=== PATIENT | female | born 1955 | race Caucasian/White ===

== ENCOUNTER → 2016-11-30 | Outpatient (CLI) | payer OTHER ==
--- NOTE | 2016-12-01 13:54 | MAMMOGRAPHY REPORT ---
BILATERAL DIGITAL SCREENING MAMMOGRAM TOMOSYNTHESIS WITH CAD: 11/30/2016 CLINICAL HISTORY: Routine screening. Patient has no complaints. TECHNIQUE: Breast tomosynthesis in addition to standard 2D mammography was performed. Current study was also evaluated with a Computer Aided Detection (CAD) system. COMPARISON: Comparison is made to exams dated: 11/04/2015 mammogram, 10/29/2014 mammogram, 10/18/2013 ma mmogram, 10/11/2012 mammogram, 09/29/2011 mammogram, and 07/16/2010 mammogram - [facility]. BREAST COMPOSITION: The tissue of both breasts is heterogeneously dense, which may obscure small mas ses. FINDINGS: The breast parenchyma pattern is similar to prior exams. A 6 mm nodular asymmetry in the l ateral left breast is unchanged dating back to at least 01/23/2009, therefore likely benign. There a re a few scattered benign rim calcifications in the breasts. No new suspicious mass, architectural d istortion or cluster of microcalcifications is seen. IMPRESSION: ACR BI-RADS CATEGORY 1: NEGATIVE There is no mammographic evidence of malignancy. A 1 year screening mammogram is recommended. The pa tient will receive written notification of the results. Approximately 10% of breast cancers are not detected with mammography. A negative mammographic report should not delay biopsy if a clinically suggestive mass is present. Milagro Ramos M.D. ay/:11/30/2016 16:53:03 National Coverage Specialist: Carina Li RT(R)(M), [facility] letter sent: Normal 1/2 BI-RADS Code: ACR BI-RADS Category 1: Negative
== END | disposition home or self-care (01) ==
LOC: C.MAMM 16:05
PROVIDERS: ATTEND Obstetrics & Gynecology
DX: Z12.31 Encounter for screening mammogram for malignant neoplasm of breast (principal)

== ENCOUNTER → 2017-02-12 | Outpatient (CLI) | payer OTHER ==
[2017-02-12 10:17] LABS: CHOLESTEROL/HDL RATIO 2.3
== END | disposition home or self-care (01) ==
LOC: C.LAB 07:23
DX: Z00.00 Encounter for general adult medical examination without abnormal findings (principal)

== ENCOUNTER 2020-08-23 05:04 | Observation (INO) ==
--- NOTE | 2020-08-05 12:04 | Anesthesiology Consultation ---
Date of Service August 05, 2020 Assessment & Plan (1) Encounter for pre-operative examination: COVID Status: As of 08/05 assessment, patient denies travel to endemic area, known exposure/sick contacts, or symptoms of COVID19. Patient instructed that they and their household members must follow strict social distancing guidelines, wear a mask in public and avoid travel/events/gatherings for 14 days prior to surgery. Preoperative COVID19 testing to be completed prior to surgery per surgeon's arrangements. Patient made aware to self-isolate as much as possible between COVID testing and surgery (she will have to work but will otherwise isolate). *H/O PONV with GALLITO* Chart Review Chart Review: Acceptable Risk for Surgery and Patient seen in Pre Admission Testing Teaching & Discussion Instructed NPO after midnight before surgery, except medications with 15 cc of water. Medication instructions provided according to the PAT guidelines. History Surgery Operation Date: 08/23/20 10:55 Proposed Procedures p Right Total Hip Arthroplasty - Fabio Morales MD Height/Weight Height: 5 ft 6 in Weight: 59.4 kg Allergies Allergy/AdvReac Type Severity Reaction Status Date / Time Penicillins Allergy Mild Rash Verified 07/31/20 07:30 tetracycline Allergy Mild Hives Verified 07/31/20 07:30 Medications Home Medications Medication Instructions Recorded Confirmed Last Taken No Known Home Medications 04/09/20 07/31/20 Unknown Past Medical History Medical History Arthritis Asymptomatic menopausal state Basal cell carcinoma removed from back 2011 IBS (irritable bowel syndrome) Osteoarthritis PONV (postoperative nausea and vomiting) Exercise / Class Metabolic Activity II 4-5 Yardwork/Stairs/Walk up hill (Some mild OCONNELL with 1 FOS, no chest pain. Has always been active, feels deconditioned 2/2 hip pain) Past Family History Family History Mother Hypertension Father Esophageal cancer Denies family history of Ovarian cancer Breast cancer Colorectal cancer Past Surgical History Surgical History H/O: hysterectomy GALLITO 1998, fibroids History of oral surgery wisdom teeth extr Hx of colonoscopy Past Anesthesia History No Hx of Anesthesia Complications (other than PONV) and No Family Hx of Anesthesia Complications History of PONV History of PONV (with GALLITO) and Hx of Motion Sickness Social History Smoking Status: Never smoker Do You Dip or Chew Tobacco: No Smoking End Date: age 19 and no longer Hx Alcohol Use: Yes Alcohol type: wine and hard liquor alcohol intake frequency: a few times a week Hx Substance Use: No substance use type: does not use Review of Systems Pt denies any recent chest pain, shortness of breath, cough, fever, URI, or uncontrolled acid reflux. +hip pain +occasional palpitations Physical Exam Vital Signs BP: 135/71 P: 64bpm SPO2: 98% RA T: 97.7 F R: 16 ENMT Mouth: + dental restorations (lower L crown); no chipped teeth and no loose teeth Thyromental Distance: < 3.5 Finger Breadths Mallampati Class: I Neck normal visual inspection; neck extension not limited Respiratory normal respiratory effort, lungs clear to auscultation Cardiovascular RRR, no murmur, no edema Testing Laboratory Results 08/05/20 12:34 08/05/20 12:34 PT 10.0 Seconds (9.0-12.0) 08/05/20 12:34 INR 1.0 (0.9-1.1) 08/05/20 12:34 APTT 23.9 Seconds (21.0-31.0) 08/05/20 12:34 Blood Type O Positive 08/05/20 12:34 Antibody Screen NEGATIVE 08/05/20 12:34 Electrocardiogram Date: 08/05/20 Findings: + NSR @ (61bpm) Chest X-Ray Date: 08/05/20 Findings: + NAD
--- NOTE | 2020-08-05 13:05 | XRay Report ---
XR chest Pre-admission PA/Lat CLINICAL HISTORY: Preoperative evaluation. COMPARISON STUDY: No previous studies for comparison. FINDINGS: Lung volumes are normal. Lungs are clear. There is no pneumothorax or pleural effusion. Car diac size is normal. Mediastinal contours are normal. There is no evidence for pulmonary edema. IMPRESSION: No acute cardiopulmonary findings. ACT 112: Negative or not required by law. Electronically signed by: Martínez Rehman M.D. 08/05/2020 1:04 PM
[2020-08-05 13:34] LABS: Basophils # (auto) 0.03 K/uL (0-0.2); Basophils % (auto) 0.6 %; Eosinophils # (auto) 0.06 K/uL (0-0.5); Eosinophils % (auto) 1.3 %; Hematocrit (blood only) 36.9 % (37-47); Hemoglobin 12.7 g/dL (12.0-16.0); Immature Granulocytes # (auto) 0.01 K/uL (0.00-0.02); Immature Granulocytes % (auto) 0.2 %; Lymphocytes # (auto) 2.15 K/uL (1.2-3.4); Lymphocytes % (auto) 45.5 %; Mean Corpuscular Hemoglobin 31.6 pg (25-34); Mean Corpuscular Hgb Conc 34.4 g/dL (32-36); Mean Corpuscular Volume 91.8 fL (80-100); Mean Platelet Volume 10.6 fL (7.4-10.4); Monocytes # (auto) 0.37 K/uL (0.11-0.59); Monocytes % (auto) 7.8 %; Neutrophils # (auto) 2.11 K/uL (1.4-6.5); Neutrophils % (auto) 44.6 %; Platelet Count 317 K/uL (130-400); RDW Coefficient of Variation 13.8 % (11.5-14.5); RDW Standard Deviation 46.7 fL (36.4-46.3); Red Blood Count 4.02 M/uL (4.2-5.4); White Blood Count 4.73 K/uL (4.8-10.8)
[2020-08-05 13:44] LABS: Partial Thromboplastin Ratio 0.9; Partial Thromboplastin Time 23.9 Seconds (21.0-31.0)
[2020-08-05 14:09] LABS: BUN Creatinine Ratio 16.3 (10-20); Calcium 9.7 mg/dl (8.5-10.1); Creatinine Clr Calc Pharmacy 69.1 ml/min; Est GFR (African American) 94.6; Est GFR (Non-African American) 81.6; Potassium 3.8 mmol/L (3.5-5.1)
--- NOTE | 2020-08-06 06:35 | Electrocardiogram Report ---
Test Reason : Blood Pressure : / mmHG Vent. Rate : 061 BPM Atrial Rate : 061 BPM P-R Int : 194 ms QRS Dur : 094 ms QT Int : 410 ms P-R-T Axes : 082 086 067 degrees QTc Int : 412 ms Normal sinus rhythm Normal ECG No previous ECGs available Confirmed by Ori Hylton ([id number]) on 08/06/2020 6:35:07 AM Referred By: Fabio Morales Confirmed By:Ori Hylton
[2020-08-23] MEDS ORDERED: Scopolamine 1 MG TDSY TD SCH (06:00)
[2020-08-23] MEDS ORDERED: FAMOTIDINE 20 MG TAB PO SCH (06:00)
[2020-08-23] MEDS ORDERED: LR 500ML BOLUS, THEN 15ML/HR IV SCH (06:00)
[2020-08-23] MEDS ORDERED: LR 60ML/HR IV SCH (06:00)
[2020-08-23] MEDS ORDERED: ACETAMINOPHEN 500 MG TAB PO SCH (06:00)
[2020-08-23] MEDS ORDERED: ceFAZolin 2000MG 2,000 MG/15 ML SYR IV SCH (06:00)
[2020-08-23] MEDS ORDERED: GABAPENTIN 600 MG DOSE PO SCH (06:00)
[2020-08-23] MEDS ORDERED: TRANEXAMIC ACID 1,000 MG **IV Pre-op IV SCH (06:00)
[2020-08-23] MEDS ORDERED: BUPIVACAINE 0.5 % 5 MG/1 ML PF 10ML VIAL ONE (06:26)
[2020-08-23] MEDS ORDERED: MIDAZOLAM HCL 1 MG/ML 2ML VIAL ONE (06:38)
[2020-08-23] MEDS ORDERED: PROPOFOL IV EMULSION 10 MG/ML 20 ML VIAL IV ONE (06:38)
[2020-08-23] MEDS ORDERED: BUPIVACAINE/EPINEPHRINE 0.5% MPF 1:200,000 30 ML VIAL ONE (06:38)
[2020-08-23] MEDS ORDERED: LIDOCAINE HCL 2% 2 ML VIAL/AMP(20MG/ML) INFIL ONE (06:38)
[2020-08-23] MEDS ORDERED: fentaNYL citrate 100 MCG/2 ML VIAL ONE (06:38)
[2020-08-23] MEDS ORDERED: BACITRACIN INJ 50,000 UNIT VIAL ONE (06:39)
[2020-08-23] MEDS ORDERED: MoRPHine SULFATE PF 1 MG/ML 10 ML AMP/VIAL ONE (06:46)
--- NOTE | 2020-08-23 06:52 | History & Physical Bridge Note ---
Date of Service August 23, 2020 History & Physical Bridge Note I have examined the patient, reviewed the History & Physical and in the interval since the performance of the History & Physical I have noted the following changes of clinical significance: no changes noted
[2020-08-23] MEDS ORDERED: KETAMINE 50 MG/5 ML SYRINGE ONE (07:09)
[2020-08-23] MEDS ORDERED: diphenhydrAMINE 50 MG/ML VIAL IV PRN (07:12)
[2020-08-23] MEDS ORDERED: NALOXONE HCL 0.4 MG/1 ML VIAL/CARP IV PRN ×2 (07:12→09:27)
[2020-08-23] MEDS ORDERED: MoRPHine SULFATE 2 MG/ML CARP IV PRN (07:12)
[2020-08-23] MEDS ORDERED: NALOXONE HCL 0.08 MG in SYRINGE 1.8 ML IV PRN (07:12)
[2020-08-23] MEDS ORDERED: MoRPHine SULFATE PF 1 MG/ML 10 ML AMP/VIAL INT SPINAL ONE (07:12)
[2020-08-23] MEDS ORDERED: NALOXONE HCL 1 MG in SODIUM CHLORIDE 0.9% 1000ML 1,000 ML IV PRN (07:12)
[2020-08-23] MEDS ORDERED: ONDANSETRON INJ 2 MG/ML 2 ML VIAL IV PRN (07:12)
[2020-08-23] MEDS ORDERED: ePHEDrine sulfate 50 MG/ML AMP IV PRN (07:12)
[2020-08-23] MEDS ORDERED: PROMETHAZINE HCL 25 MG in SODIUM CHLORIDE 0.9% 50 ML IV PRN (07:12)
[2020-08-23] MEDS ORDERED: LACTATED RINGER'S 500 ML IV PRN (07:12)
[2020-08-23] MEDS ORDERED: SODIUM CHLORIDE 0.9% 1000ML 1,000 ML IV SCH (07:15)
[2020-08-23] MEDS ORDERED: DC INTRASPINAL MORPHINE SCH (07:15)
[2020-08-23] MEDS ORDERED: NO NARCOTICS OR SEDATIVES SCH (07:15)
[2020-08-23] MEDS ORDERED: ePHEDrine sulfate 50 MG/ML SYR ONE (07:34)
[2020-08-23] MEDS ORDERED: ONDANSETRON INJ 2 MG/ML 2 ML VIAL ONE (07:34)
--- NOTE | 2020-08-23 08:40 | Operative Report ---
Post Operative Report Pre & Post Diagnosis Operation Date: 08/23/20 07:00 Pre-Op Diagnosis: Right Hip Degenerative Joint Disease Post-Op Diagnosis: Right Hip Degenerative Joint Disease I identified the patient and participated in the time-out.: Yes Procedure Operation Date: 08/23/20 07:00 Actual Procedures p Right Total Hip Arthroplasty(Right) - Fabio Morales MD Surgeon Fabio Morales MD Childhood Development Teacher LUISA Rosenberg Estimated Blood Loss 150 Findings Consistent with Post-Op Diagnosis Operative findings revealed advanced right hip DJD. She had grade 4 [id number] disease of the femoral head and acetabulum. She had large anterior acetabular osteophyte as well as significant osteophytes around the femoral head as well as inferior acetabular osteophytes. Moderate-sized joint effusion. Very stiff hip. Fluids 1000 cc Specimens Right femoral head sent for pathology. Drains None. Complications none Disposition Accompanied Patient To Recovery: Yes Disposition: Recovery Room Indications Patient is a 64-year-old very active female whose had about a 7-year history of gradually progressive increasing right hip pain discomfort is gotten singly worse over the past year that she has been having trouble doing any significant activities. X-ray showed progressive hip arthritis. She failed all conserv ative measures and elected proceed with surgical treatment. Description of Procedure Operative implants consist of: 1. Biomet size 52 mm G7 acetabular shell. 2. 6.5 cancellous acetabular screws 135 mm in length 1 to 20 mm length. 3. Ambler hole office machinery or equipment installer. 4. Highly cross-linked polyethylene liner with a 52 mm outer diameter and 36 mm inner diameter. 5. DePuy Corail size 10 KLA femoral stem. 6. +1.5/36 mm ceramic articular ball. The patient was taken to the operating room, identified, and placed on the operating table supine position but a contractors were properly padded. IV antibiotics 5 by anesthesia team. A spinal anesthetic and been implemented holding area. Barnes catheter was placed in sterile fashion. The patient was then placed in the left lateral decubitus position. An axillary roll was placed. Stulberg hip positioner was used for positioning. The right hip and leg were then prepped and draped in usual sterile fashion. A posterior lateral approach of the right hip was then performed to a curvilinear incision centered over the greater trochanter. Sharp dissection was got through subcutaneous tissue down below the IT band gluteal fascia for the IT band gluteal fascia was incised longitudinally in line with the skin incision. The underlying greater trochanteric bursa was then excised. The piriformis and external rotators along with the posterior hip joint capsule were then released from the posterior aspect of the hip joint as a single layer. Great care was taken throughout the procedure protect the sciatic nerve at all times. Hip was internally rotated and dislocated. Femoral neck osteotomy cut was made with Final Cut about 10 mm above the lesser trochanter. Femoral head was removed and sent for pathology. The femur was retracted anteriorly. Attention drawn the acetabulum. The acetabular labrum was excised. The pulmonary fat was excised. Sequential reaming of the acetabulum was then performed given the size 43 and progressing up to 51. I then reamed just gently with a 52 reamer and placed a 52 mm Biomet G7 acetabular shell. This is placed in about 40 degrees lateral opening and 20 degrees of anteversion. Was fixed fixed with two 6.5 cancellous acetabular screws. A large anterior osteophyte was removed. Trial liner was placed. Attention drawn the femur. The proximal femur was entered with a cookie-cutter followed by canal finder. I then broached begin the size 8 and progressing up to a 10. The tendon really fit pretty tight. Her cancellous bone was not great. I did not feel like I can fit the 11 implant in. We elected to stay with this. We had good rotational control. The calcar reamer was used smooth and off the calcar. Then trialed the The heads and the +5 just seemed a little bit longer little bit tight. The +1.5 seem to recreate leg length equally as well as appropriate soft tissue tension. The hip was fully stable in full extension and external rotation flexion to 9 degrees internal rotation over [address] I elect to place these implants. We did place a 36 head in order to maximize her stability as she does a lot of squatting and bending activities. All trial implants were removed. An apex hole office machinery or equipment installer was placed. Highly cross-linked polyethylene liner was placed. The DePuy size 10 KLA femoral stem was impacted in position. +1.5/36 mm ceramic articular ball was placed and the hip was once again located. It was stable. Attention drawn toward closing. The wound was irrigated with copious amounts of pulsatile lavage solution. I did inject with 60 cc of absent Marcaine with epinephrine. The posterior capsule and external rotators were then repaired through drill holes in the posterior trochanter with #2 Tycron suture as a single layer. The IT band gluteal fascia then closed in 1 PDS suture running fashion for subcutaneous tissue then closed with 2 layers of the deep layer #1 Vicryl suture and subcutaneous tissues with 2-0 Dexon suture in a buried interrupted fashion. Skin was closed with skin nabila. Leg was then cleaned dried a sterile dressing was Xeroform, 4 x 4's, ABD pad, foam tape was applied. Patient then transferred to the recovery room in stable condition. Patient tolerated procedure well and there were no complications. Alvino Rosenberg, my physician offset assistant press operator, was present for the entire procedure. His assistance was essential and required for appropriate patient positioning, prepping and draping, surgical exposure, performing the technical details of the operation, placement the implants, closure of the wound, and placement of the sterile bandage. I attest to the content of the Intraoperative Record and any orders documented therein. Any exceptions are noted below.
--- NOTE | 2020-08-23 09:00 | XRay Report ---
XR hip 1V RT w pelvis CLINICAL HISTORY: Postoperative examination COMPARISON: June 14, 2015 DISCUSSION: Postsurgical changes of a total right hip arthroplasty. The acetabular and femoral compon ents appear well seated. There is gas present within soft tissues consistent with recent surgery. The re are overlying skin nabila. There is no dislocation. IMPRESSION: Postsurgical changes of a total right hip arthroplasty. ACT 112: Negative or not required by law. Electronically signed by: Aly iMchel M.D. 08/23/2020 8:58 AM
[2020-08-23] MEDS ORDERED: MAGNESIUM HYDROXIDE SUSP 30 ML UDC PO PRN (09:27)
[2020-08-23] MEDS ORDERED: ALUMINUM/MAGNESIUM SUSP 30 ML UDC PO PRN (09:27)
[2020-08-23] MEDS ORDERED: METOCLOPRAMIDE HCL INJ 5 MG/ML 2 ML VIAL IV PRN (09:27)
[2020-08-23] MEDS ORDERED: NON-FORMULARY MEDICATION (Multivitamin-Minerals-Lutein Tablet) PO SCH (09:27)
[2020-08-23] MEDS ORDERED: bisacodyL 10 MG SUPP PR PRN (09:27)
--- NOTE | 2020-08-23 09:36 | Anesthesiology Progress Note ---
Date of Service August 23, 2020 Anesthesia Post Procedure Vital Signs Vital Signs: Temp Pulse Pulse Resp BP BP Pulse Ox 08/23/20 09:00 36.3 C L 68 13 113/59 L 95 08/23/20 08:50 76 20 114/57 L 95 08/23/20 08:40 73 16 120/56 L 96 08/23/20 08:31 36.5 C 76 16 118/55 L 99 08/23/20 05:15 36.6 C 70 20 133/72 99 Pain Intensity Right Hip: Pain Intensity: 1 Transfer of Care Handoff Completed per policy Notes Mental Status: alert / awake / arousable and participated in evaluation Patient Amnestic to Procedure: Yes Nausea / Vomiting: adequately controlled Pain: adequately controlled Airway Patency, RR, SpO2: stable & adequate BP & HR: stable & adequate Hydration State: stable & adequate Anesthetic Complications: no major complications apparent and Pt Satisfied with anesthetic care
[2020-08-23] MEDS: SODIUM CHLORIDE 0.9% 1000ML 1,000 ML IV SCH ×2 (09:41→19:45)
[2020-08-23] MEDS: ASPIRIN 81 MG ECTAB PO SCH ×2 (10:27→20:30)
[2020-08-23] MEDS: DOCUSATE SODIUM 100 MG CAP PO SCH ×2 (10:28→20:30)
[2020-08-23] MEDS: MULTIVITAMIN TAB PO SCH (10:28)
[2020-08-23] MEDS: ADVANCED PROBIOTIC 1250 MG CAPSULE PO SCH (10:29)
--- NOTE | 2020-08-23 11:54 | Progress Notes ---
DATE: 08/23/2020 SUBJECTIVE: A 64-year-old female postop from a right hip replacement. She is doing well. She describes a little bit of soreness in her hip area. No real severe significant pain. No chest pain or shortness of breath. Not feeling dizzy or lightheaded. OBJECTIVE: VITAL SIGNS: Temperature is 36.2. Vital signs are stable. GENERAL: Shows a pleasant, middle-aged female. She is sitting up in her bed, looks quite comfortable. LUNGS: Clear to auscultation. HEART: Regular rate and rhythm. ABDOMEN: Soft, nontender, nondistended. EXTREMITIES: Grossly neurovascularly intact except as follows: Examination of the right hip and leg reveals the leg to be appropriately aligned. Leg lengths were equal. Hip is located. Thigh is soft and supple. Dressing is clean, dry and intact. She can dorsiflex and plantarflex her foot appropriately. X-RAYS: X-rays of the right hip from recovery room are reviewed. It shows right uncemented total hip arthroplasty. Components looked to be in good position. No signs of problems. ASSESSMENT: A 64-year-old female postoperative from a right hip replacement, doing well. Pain is controlled. Hip is located. She is neurologically intact. PLAN: 1. DVT prophylaxis including thigh-high TEDs, SCDs, and aspirin twice a day. 2. PT/OT. Weight bear as tolerated. Right total hip protocol. 3. Pain control, doing okay with current pain regimen. 4. IV antibiotics x24 hours. 5. Disposition: She is planning to be discharged to home with some home health once adequately recovered and getting around appropriately.
[2020-08-23] MEDS: KETOROLAC 30 MG/ML VIAL IV SCH ×3 (12:57→23:20)
[2020-08-23] MEDS ORDERED: TRANEXAMIC ACID / 0.7% NACL 1,000 MG/100 ML BAG IV SCH (14:30)
[2020-08-23] MEDS: ceFAZolin 1000MG 1,000 MG/7.5 ML SYR IV SCH ×2 (14:32→23:19)
[2020-08-23] MEDS: ACETAMINOPHEN 500 MG TAB PO SCH ×2 (14:32→23:20)
[2020-08-23] MEDS: Scopolamine CHECK PATCH PLACEMENT SCH ×2 (17:55→23:22)
[2020-08-23] MEDS: FERROUS GLUCONATE 324 MG TAB PO SCH (17:56)
[2020-08-23] MEDS: ASCORBIC ACID 500 MG TAB PO SCH (17:57)
[2020-08-23] MEDS ORDERED: SENNA 8.6 MG TAB PO SCH (21:00)
[2020-08-24] MEDS ORDERED: HYDROmorphone INJ 0.5 MG/0.5 ML SYR IV PRN (01:12)
[2020-08-24] MEDS ORDERED: traMADol HCL 50 MG TABLET PO PRN (01:12)
[2020-08-24] MEDS ORDERED: ONDANSETRON INJ 2 MG/ML 2 ML VIAL IV PRN (01:12)
[2020-08-24] MEDS ORDERED: diphenhydrAMINE Capsule 25 MG CAP PO PRN (01:12)
[2020-08-24] MEDS: SODIUM CHLORIDE 0.9% 1000ML 1,000 ML IV SCH (04:21)
[2020-08-24] MEDS: ACETAMINOPHEN 500 MG TAB PO SCH (05:58)
[2020-08-24] MEDS: KETOROLAC 30 MG/ML VIAL IV SCH (05:59)
[2020-08-24 06:50] LABS: Basophils # (auto) 0.01 K/uL (0-0.2); Basophils % (auto) 0.2 %; Eosinophils # (auto) 0.02 K/uL (0-0.5); Eosinophils % (auto) 0.4 %; Hemoglobin 9.9 g/dL (12.0-16.0); Lymphocytes # (auto) 0.83 K/uL (1.2-3.4); Lymphocytes % (auto) 17.1 %; Mean Corpuscular Hemoglobin 30.8 pg (25-34); Mean Corpuscular Volume 93.5 fL (80-100); Monocytes # (auto) 0.56 K/uL (0.11-0.59); Monocytes % (auto) 11.6 %; Neutrophils # (auto) 3.42 K/uL (1.4-6.5); Neutrophils % (auto) 70.7 %; Platelet Count 209 K/uL (130-400); RDW Coefficient of Variation 14.1 % (11.5-14.5); RDW Standard Deviation 48.7 fL (36.4-46.3); Red Blood Count 3.21 M/uL (4.2-5.4); White Blood Count 4.84 K/uL (4.8-10.8)
[2020-08-24 07:16] LABS: BUN Creatinine Ratio 14.6 (10-20); Calcium 7.8 mg/dl (8.5-10.1); Creatinine Clr Calc Pharmacy 90.1 ml/min; Est GFR (African American) 112.9; Est GFR (Non-African American) 97.4
[2020-08-24] MEDS ORDERED: dexAMETHasone 4 MG TAB PO SCH (08:00)
[2020-08-24] MEDS: DOCUSATE SODIUM 100 MG CAP PO SCH (08:32)
[2020-08-24] MEDS: ASCORBIC ACID 500 MG TAB PO SCH (08:32)
[2020-08-24] MEDS: FERROUS GLUCONATE 324 MG TAB PO SCH (08:32)
[2020-08-24] MEDS: ASPIRIN 81 MG ECTAB PO SCH (08:33)
[2020-08-24] MEDS: ADVANCED PROBIOTIC 1250 MG CAPSULE PO SCH (08:34)
[2020-08-24] MEDS: MULTIVITAMIN TAB PO SCH (08:34)
[2020-08-24] MEDS: Scopolamine CHECK PATCH PLACEMENT SCH (08:36)
--- NOTE | 2020-08-24 09:34 | Progress Notes ---
DATE: 08/24/2020 SUBJECTIVE: A 64-year-old white female postop day 1 from a right hip replacement. She is doing well. She describes a soreness and that is about it. No chest pain or shortness of breath. Not feeling dizzy or lightheaded. OBJECTIVE: VITAL SIGNS: Temperature is 36.9. Vital signs stable. GENERAL: Shows a pleasant, middle-aged female. She is sitting up in her bedside chair, looks entirely comfortable. EXTREMITIES: Examination of the right leg reveals the dressing to be clean, dry and intact. Leg lengths were equal. She can dorsiflex and plantarflex her foot appropriately. She can do a straight leg raise. She is neurologically intact. LABORATORY DATA: Hemoglobin 9.9. Hematocrit 30.0. Electrolytes are stable. ASSESSMENT: A 64-year-old white female postop day 1 from right hip replacement, doing well. Pain is controlled. Hip is located. She is neurologically intact. PLAN: 1. DVT prophylaxis including thigh-high TEDs, SCDs, and aspirin twice a day. 2. PT/OT. Weight bear as tolerated. Right total hip protocol. 3. Pain control, doing well with current pain regimen. 4. Disposition: Plan to discharge to home with some home health later today.
--- NOTE | 2020-08-26 13:45 | Discharge Summary ---
Date of Service August 26, 2020 Discharge Data Procedures Performed Operation Date: 08/23/20 07:00 Actual Procedures p Right Total Hip Arthroplasty(Right) - Fabio Morales MD Hospital Course (1) Status post total hip replacement, right: This patient is a 64 year old female admitted on 08/23/20 and underwent total hip arthroplasty. She tolerated the procedure well and there were no complications. Transferred to the PACU post op and later to the orthopedic floor for further care. She was given ancef for antibiotic prophylaxis. She was also given CARLI stockings, SCDs, and aspirin for DVT prophylaxis. Hemoglobin, hematocrit, and vital signs were monitored during her hospital stay and remained stable. Did not require any blood transfusions. There were no complications dur ing her hospital stay. By post op day #1 the patient was tolerating a regular diet, pain was reasonably controlled with oral pain medicine, and she was participating in physical therapy. On post op day #1 the patient was discharged home and set up with home health care. She was given printed discharge instructions including prescriptions for extra strength tylenol, aspirin, and tramadol. Continue physical therapy, weight bearing as tolerated. Continue hip precautions. Continue CARLI stockings. Follow up approximately 2 weeks post op or sooner if there are problems or concerns. Coding Level of Care Code None Diagnoses Status post total hip replacement, right Z96.641
== END 2020-08-24 11:13 | disposition home health service (06) ==
LOC: 3E 05:04 → ASU 05:04